=== PATIENT | female | born 1985 | race Caucasian/White ===

== ENCOUNTER 2025-09-25 08:18 | Emergency (ER) | payer BC ==
[~2025-09-25] VITALS: Ht 165.1 cm; Wt 68.0 kg
[2025-09-25 08:22] VITALS: O2SAT 100
[2025-09-25] MEDS: DIPHENHYDRAMINE 50MG CAPSULE PO ONE (08:52)
[2025-09-25] MEDS: PREDNISONE 20MG TABLET PO ONE (08:52)
[2025-09-25] MEDS ORDERED: DIPHENHYDRAMINE 25MG CAPSULE PO NR (09:00)
[2025-09-25 09:02] VITALS: BP 130/70; PULSE 84; RESP 15; TEMP 36.9; O2SAT 99
== END 2025-09-25 09:14 | disposition home or self-care (01) ==
LOC: ER 08:18
DX: T78.40XA Allergy, unspecified, initial encounter (principal); Z91.040 Latex allergy status; Z88.5 Allergy status to narcotic agent; Z88.2 Allergy status to sulfonamides; X58.XXXA Exposure to other specified factors, initial encounter
CPT/HCPCS: 99283; Q0163; J7512